=== PATIENT | male | born 1965 | race Caucasian/White ===

== ENCOUNTER 2018-05-18 09:05 | Inpatient (IN) | payer MEDICAID ==
[~2018-05-18] VITALS: Ht 177.8 cm; Wt 98.0 kg
--- NOTE | 2018-05-18 09:39 | NUR ---
patient VEENA VALDES from [facility]. EMS was told that the patient fell out of bed 7 times last night, EMS was called by day shift BRANDON Hidalgo for Altered LOC. This RN has called [facility] and spoken with BRANDON Hidalgo there. She states that the evdence indicates the patient likely was altered during the night, and that was the reason for his falls from bed. The falls were approx 1 foot from his very low bed onto a padded floor. 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 MD Smith updated of this new info, and stated patient should be isolated for TB rule out. This RN has updated spline rolling machine job setter and requested patient be transferred to a TB isolation room. Iso cart and sign placed on room door now by this RN until transfer can be completed.
--- NOTE | 2018-05-18 11:06 | NUR ---
TB precautions discussed with technical staff assistant and observed by technical staff assistant during transport, patient now back from CT scan and placed in room 41 under TB/airborne precautions and negative pressure, Report given to RN Chidi TOWNSEND equipment now present outside room and team assembly line machine operator has stated she will return for blood draw. MD Smith updated of patient's transfer to room 41.
[2018-05-18] MEDS ORDERED: PLEASE ENTER HEIGHT AND WEIGHT MC SCH (12:30)
[2018-05-18] MEDS ORDERED: PIPERACILLIN/TAZO/PMX 4.5GM 100 ML IV ONE (12:30)
[2018-05-18] MEDS ORDERED: VANCOMYCIN PER PHARMACY MC PRN ×2 (12:30→15:00)
[2018-05-18 12:46] LABS: BASOPHILS # (AUTO) 0.03 x10^3/uL (0-0.1); BASOPHILS % (AUTO) 0 % (0-1); EOSINOPHILS # (AUTO) 0.42 x10^3/uL (0-0.4); EOSINOPHILS % (AUTO) 3 % (1-7); LYMPHOCYTES # (AUTO) 2.36 x10^3/uL (1-3.4); LYMPHOCYTES % (AUTO) 16 % (22-44); MD NO; MEAN CORPUSCULAR HEMOGLOBIN 31.7 pg (27.5-34.5); MEAN CORPUSCULAR HGB CONC 33.6 g/dL (33.2-36.2); MEAN CORPUSCULAR VOLUME 94.3 fL (81-97); MEAN PLATELET VOLUME 8.2 fL (7.4-10.4); MONOCYTES # (AUTO) 1.01 x10^3/uL (0.2-0.8); MONOCYTES % (AUTO) 7 % (2-9); NEUTROPHILS # (AUTO) 10.92 x10^3/uL (1.8-6.8); NEUTROPHILS % (AUTO) 74 % (42-75); PLATELET COUNT 274 x10^3/uL (130-400); RED BLOOD COUNT 2.76 x10^6/uL (4.38-5.82); RED CELL DISTRIBUTION WIDTH 14.8 % (9.4-14.8)
[2018-05-18 12:59] LABS: ALANINE AMINOTRANSFERASE 21 U/L (12-78); ALBUMIN 3.3 g/dL (3.4-5.0); ANION GAP 5 mmol/L (5-15); CALCIUM 8.3 mg/dL (8.5-10.1); CHLORIDE 110 mmol/L (98-107); CREATININE 3.69 mg/dL (0.7-1.3)
[2018-05-18 13:02] LABS: INTERNATIONAL NORMALIZED RATIO 0.92 (0.93-1.1); PROTHROMBIN TIME 9.8 Seconds (9.6-11.5)
[2018-05-18 13:03] LABS: ALKALINE PHOSPHATASE 125 U/L (45-117); BILIRUBIN,TOTAL 0.2 mg/dL (0.2-1.0); CREATINE KINASE, TOTAL 285 U/L (39-308); TOTAL PROTEIN 7.5 g/dL (6.4-8.2); TROPONIN I < 0.015 ng/mL (0.000-0.045)
--- NOTE | 2018-05-18 13:10 | NUR ---
pt resting in room. remains altered, stating "quit bugging the shit out of me. Shut up!" pt refusing to answer orientation questions. iv access unable to be established. US attempted x2 by edmd without success. awaiting orders for IR PICC. vss.
[2018-05-18] MEDS ORDERED: VANCOMYCIN 1,800 MG in SODIUM CHLORIDE 0.9% 250 ML IV ONE (13:30)
[2018-05-18] MEDS ORDERED: PHARMACOKINETIC CONSULTATION MC ONE ×2 (13:30→16:30)
--- NOTE | 2018-05-18 13:47 | NUR ---
PT CONTINUES TO REMOVE MONITORING EQUIPMENT. PT REORIENTED AND REMINDED TO LEAVE EQUIPMENT IN PLACE. PICC BEING ATTEMPTED NOW. VSS. WILL CONTINUE TO MONITOR.
--- NOTE | 2018-05-18 14:16 | NUR ---
ANTIBIOTICS STARTED AFTER TWO SETS OF BLOOD CULTURES WERE DRAWN.
[2018-05-18] MEDS ORDERED: CALCIUM GLUCONATE 4.6 MEQ in SODIUM CHLORIDE 0.9% 50 ML IV ONE (14:30)
[2018-05-18] MEDS ORDERED: INSULIN REGULAR 100 UNITS/ML, 3ML VIAL IVPush ONE (14:30)
[2018-05-18] MEDS ORDERED: SODIUM BICARB 8.4%, 50ML SYRINGE IVPush ONE (14:30)
[2018-05-18] MEDS ORDERED: DEXTROSE 50%, 50ML SYRINGE IVPush ONE (14:30)
[2018-05-18] MEDS ORDERED: FUROSEMIDE 40 MG/4 ML IVPush ONE (14:30)
[2018-05-18] MEDS ORDERED: ALBUTEROL 0.5%, 20ML NPPB ONE (14:30)
[2018-05-18 14:42] LABS: CULTURE INDICATED? YES; MICROSCOPIC INDICATED
[2018-05-18] MEDS ORDERED: DEXTROSE 50%, 50ML SYRINGE ONE (14:58)
[2018-05-18] MEDS ORDERED: FUROSEMIDE 40 MG/4 ML ONE (14:58)
[2018-05-18] MEDS ORDERED: INSULIN REGULAR 100 UNITS/ML, 3ML VIAL ONE (14:59)
[2018-05-18] MEDS ORDERED: LABETALOL 5MG/ML, 20ML IVPush PRN (15:00)
[2018-05-18] MEDS ORDERED: DEXTROSE 4 GM TAB.CHEW PO PRN (15:00)
[2018-05-18] MEDS ORDERED: DEXTROSE 50%, 50ML SYRINGE IVPush PRN (15:00)
[2018-05-18] MEDS ORDERED: PHARMACY MAY ADJ FOR RENAL FX MC PRN (15:00)
[2018-05-18] MEDS ORDERED: GLUCAGON 1 MG IM PRN (15:00)
[2018-05-18] MEDS ORDERED: PIPERACILLIN/TAZO 2.25 GM in SODIUM CHLORIDE 0.9% 50 ML IV SCH (15:00)
[2018-05-18] MEDS ORDERED: SODIUM BICARB 8.4%, 50ML SYRINGE ONE (15:01)
[2018-05-18 15:48] LABS: HEMOGLOBIN A1C 4.9 % (4.2-6.3)
[2018-05-18] MEDS: INSULIN LISPRO 100 UNITS/ML, PEN SQ-INSULIN SCH ×2 (16:00→21:18)
[2018-05-18] MEDS ORDERED: PHARMACOKINETIC MONITORING MC PRN (16:30)
[2018-05-18] MEDS: SODIUM CHLORIDE 0.9% 1,000 ML IV SCH (16:33)
[2018-05-18 16:52] LABS: AMPHETAMINE SCREEN, URINE Negative (Negative); BARBITURATE SCREEN, URINE Negative (Negative); BENZODIAZEPINE SCREEN, URINE Negative (Negative); CANNABINOID SCREEN, URINE Negative (Negative); CHLORIDE,URINE RANDOM 38 mmol/L; COCAINE SCREEN, URINE Negative (Negative); METHADONE SCREEN, URINE Negative (Negative); OPIATE SCREEN, URINE Positive (Negative); POTASSIUM,URINE RANDOM 44 mmol/L; SODIUM,URINE RANDOM 56 mmol/L
[2018-05-18 17:03] VITALS: BP 135/83
[2018-05-18 18:11] LABS: ANION GAP 6 mmol/L (5-15); CALCIUM 7.2 mg/dL (8.5-10.1); CHLORIDE 115 mmol/L (98-107)
[2018-05-18 18:21] LABS: CREATINE KINASE, TOTAL 294 U/L (39-308); THYROID STIMULATING HORMONE 0.764 mIU/L (0.358-3.740)
[2018-05-18 20:00] VITALS: BP 131/55
[2018-05-18] MEDS: PIPERACILLIN/TAZO 2.25 GM in DEXTROSE 5% 50 ML IV SCH (21:40)
[2018-05-18] MEDS: SODIUM CHLORIDE FLUSH 10ML SYR IVF SCH (21:41)
[2018-05-19] MEDS: SODIUM CHLORIDE 0.9% 1,000 ML IV SCH ×3 (01:25→20:54)
[2018-05-19 01:35] VITALS: BP 139/61
[2018-05-19] MEDS ORDERED: SODIUM CHLORIDE INHALATION 7%, 4 ML NPPB ONE (04:30)
[2018-05-19] MEDS: PIPERACILLIN/TAZO 2.25 GM in DEXTROSE 5% 50 ML IV SCH (05:38)
[2018-05-19 06:09] LABS: BASOPHILS # (AUTO) 0.03 x10^3/uL (0-0.1); BASOPHILS % (AUTO) 0 % (0-1); EOSINOPHILS # (AUTO) 0.67 x10^3/uL (0-0.4); EOSINOPHILS % (AUTO) 6 % (1-7); LYMPHOCYTES # (AUTO) 2.33 x10^3/uL (1-3.4); LYMPHOCYTES % (AUTO) 20 % (22-44); MD NO; MEAN CORPUSCULAR HGB CONC 33.7 g/dL (33.2-36.2); MEAN CORPUSCULAR VOLUME 94.9 fL (81-97); MEAN PLATELET VOLUME 8.1 fL (7.4-10.4); MONOCYTES # (AUTO) 0.91 x10^3/uL (0.2-0.8); MONOCYTES % (AUTO) 8 % (2-9); NEUTROPHILS % (AUTO) 66 % (42-75); PLATELET COUNT 271 x10^3/uL (130-400); RED BLOOD COUNT 2.58 x10^6/uL (4.38-5.82); RED CELL DISTRIBUTION WIDTH 15.4 % (9.4-14.8)
[2018-05-19 06:17] LABS: ANION GAP 3 mmol/L (5-15); CALCIUM 8.2 mg/dL (8.5-10.1); CHLORIDE 114 mmol/L (98-107)
[2018-05-19 06:21] LABS: ALANINE AMINOTRANSFERASE 17 U/L (12-78); ALKALINE PHOSPHATASE 111 U/L (45-117); BILIRUBIN,TOTAL 0.3 mg/dL (0.2-1.0); CHOL/HDL RATIO 2.7; CHOLESTEROL, TOTAL 112 mg/dL (140-239); CREATININE 3.34 mg/dL (0.7-1.3); HDL CHOL % 38 % (26-37); HDL CHOLESTEROL (DIRECT) 42 mg/dL (40-60); LDL CHOLESTEROL,CALCULATED 43 mg/dL (54-169); TOTAL PROTEIN 6.9 g/dL (6.4-8.2); TRIGLYCERIDES 135 mg/dL (50-200); VANCOMYCIN,RANDOM 20.7 mcg/mL; VLDL CHOLESTEROL 27 mg/dL (0-25)
[2018-05-19] MEDS ORDERED: DEXTROSE 50%, 50ML SYRINGE IVPush ONE (06:30)
[2018-05-19] MEDS ORDERED: INSULIN REGULAR 100 UNITS/ML, 3ML VIAL IV ONE ×2 (06:30→13:30)
[2018-05-19] MEDS ORDERED: CALCIUM GLUCONATE 4.6 MEQ in SODIUM CHLORIDE 0.9% 50 ML IV ONE (07:00)
[2018-05-19] MEDS ORDERED: D5%-0.45% NACL 1,000 ML IV SCH ×2 (07:00→13:34)
[2018-05-19] MEDS: INSULIN LISPRO 100 UNITS/ML, PEN SQ-INSULIN SCH ×4 (07:00→20:25)
[2018-05-19 07:42] VITALS: BP 134/65
[2018-05-19] MEDS: SODIUM CHLORIDE FLUSH 10ML SYR IVF SCH ×2 (08:35→20:54)
[2018-05-19] MEDS ORDERED: FUROSEMIDE 40 MG/4 ML IV ONE (09:30)
[2018-05-19 09:32] LABS: O2 FLOW 2 L/min
--- NOTE | 2018-05-19 09:47 | NUR ---
Recommend: puree/NTLs, 1:1 assist, PO only when pt awake/alert. Swallow precaution sign posted at bedside.
[2018-05-19 12:39] LABS: ANION GAP 6 mmol/L (5-15); CALCIUM 8.4 mg/dL (8.5-10.1); CHLORIDE 112 mmol/L (98-107); CREATININE 3.21 mg/dL (0.7-1.3)
[2018-05-19] MEDS ORDERED: DEXTROSE 50%, 50ML VIAL IVPush ONE (13:30)
[2018-05-19] MEDS ORDERED: SODIUM CHLORIDE 0.9% 1,000 ML IV SCH (13:30)
[2018-05-19 14:04] VITALS: BP 136/69
[2018-05-19 15:12] LABS: ABSOLUTE RETICS # 0.038 x10^6/uL (0.5-1.5); RED BLOOD COUNT 2.64 x10^6/uL (4.38-5.82); RETICULOCYTE COUNT % 1.46 % (0.5-1.5)
[2018-05-19 15:14] LABS: CALCIUM 8.4 mg/dL (8.5-10.1)
[2018-05-19] MEDS: CEFTRIAXONE PMX 1GM/50ML 50 ML IV SCH (17:08)
[2018-05-19] MEDS: HEPARIN 5,000 UNITS/ML, 1ML SQ SCH (17:16)
[2018-05-19 19:11] VITALS: BP 132/76
[2018-05-19 19:13] LABS: MICROSCOPIC AUTO
[2018-05-19 19:14] LABS: CHLORIDE,URINE RANDOM 132 mmol/L; POTASSIUM,URINE RANDOM 31 mmol/L; SODIUM,URINE RANDOM 109 mmol/L
[2018-05-19 19:50] LABS: OSMOLALITY,URINE 442 mOsm/kg (500-850)
[2018-05-19 21:13] LABS: ALBUMIN 3.1 g/dL (3.4-5.0); ANION GAP 5 mmol/L (5-15); CALCIUM 8.3 mg/dL (8.5-10.1); CHLORIDE 113 mmol/L (98-107); CREATININE 2.89 mg/dL (0.7-1.3)
[2018-05-19] MEDS: ACETAMINOPHEN 325 MG TABLET PO PRN (21:43)
[2018-05-20 00:27] VITALS: BP 132/76
[2018-05-20] MEDS: HEPARIN 5,000 UNITS/ML, 1ML SQ SCH ×3 (01:03→16:52)
[2018-05-20] MEDS: SODIUM CHLORIDE 0.9% 1,000 ML IV SCH (03:30)
[2018-05-20 06:19] LABS: BASOPHILS # (AUTO) 0.05 x10^3/uL (0-0.1); BASOPHILS % (AUTO) 0 % (0-1); EOSINOPHILS # (AUTO) 0.51 x10^3/uL (0-0.4); EOSINOPHILS % (AUTO) 4 % (1-7); LYMPHOCYTES # (AUTO) 2.62 x10^3/uL (1-3.4); LYMPHOCYTES % (AUTO) 23 % (22-44); MD NO; MEAN CORPUSCULAR HEMOGLOBIN 32.5 pg (27.5-34.5); MEAN CORPUSCULAR HGB CONC 34.5 g/dL (33.2-36.2); MEAN CORPUSCULAR VOLUME 94.1 fL (81-97); MEAN PLATELET VOLUME 8.1 fL (7.4-10.4); MONOCYTES # (AUTO) 0.95 x10^3/uL (0.2-0.8); MONOCYTES % (AUTO) 8 % (2-9); NEUTROPHILS # (AUTO) 7.42 x10^3/uL (1.8-6.8); NEUTROPHILS % (AUTO) 64 % (42-75); PLATELET COUNT 295 x10^3/uL (130-400); RED BLOOD COUNT 2.48 x10^6/uL (4.38-5.82); RED CELL DISTRIBUTION WIDTH 14.5 % (9.4-14.8)
[2018-05-20 06:28] LABS: CHLORIDE 113 mmol/L (98-107)
[2018-05-20 06:53] LABS: ANION GAP 6 mmol/L (5-15); CALCIUM 8.1 mg/dL (8.5-10.1)
[2018-05-20 06:54] LABS: ALANINE AMINOTRANSFERASE 19 U/L (12-78); ALBUMIN 2.9 g/dL (3.4-5.0); ALKALINE PHOSPHATASE 103 U/L (45-117); BILIRUBIN,TOTAL 0.6 mg/dL (0.2-1.0); CREATININE 2.77 mg/dL (0.7-1.3); TOTAL PROTEIN 6.7 g/dL (6.4-8.2)
[2018-05-20] MEDS: INSULIN LISPRO 100 UNITS/ML, PEN SQ-INSULIN SCH ×4 (07:00→21:04)
[2018-05-20 07:11] VITALS: BP 178/88
[2018-05-20] MEDS ORDERED: SODIUM CHLORIDE 0.45% 1,000 ML IV SCH (08:00)
[2018-05-20] MEDS ORDERED: INSU100I11 SC (08:06)
[2018-05-20] MEDS ORDERED: POLY1DRO EACHEYE (08:06)
[2018-05-20] MEDS ORDERED: ONDA4TAB7 PO (08:06)
[2018-05-20] MEDS ORDERED: OXYC10TA47 PO (08:06)
[2018-05-20] MEDS ORDERED: SENN-88 PO (08:06)
[2018-05-20] MEDS ORDERED: HEPA100D36 SC (08:06)
[2018-05-20] MEDS ORDERED: CHOL10003 PO (08:06)
[2018-05-20] MEDS ORDERED: FLUD0.1T PO (08:06)
[2018-05-20] MEDS ORDERED: ACET325T14 PO (08:06)
[2018-05-20] MEDS ORDERED: VENL37.58 PO (08:06)
[2018-05-20] MEDS ORDERED: PYRI50TA9 PO (08:06)
[2018-05-20] MEDS ORDERED: GABA300C10 PO (08:06)
[2018-05-20] MEDS ORDERED: PREGABALIN 75 MG CAPSULE PO SCH (09:00)
--- NOTE | 2018-05-20 09:53 | NUR ---
Recommend: upgrade to soft texture/thin liquids, straws okay, pacing, small bites/sips. Swallow precaution sign at bedside. Addendum: 05/20/18 at 1318 by [facility] RAO Amended: Links added.
[2018-05-20] MEDS ORDERED: VANCOMYCIN 1,800 MG in SODIUM CHLORIDE 0.9% 250 ML IV SCH ×2 (12:00→15:00)
[2018-05-20] MEDS: SODIUM CHLORIDE FLUSH 10ML SYR IVF SCH ×2 (12:09→21:00)
[2018-05-20] MEDS ORDERED: HYDR-3343 PO (12:41)
[2018-05-20] MEDS: ARTIFICIAL TEARS 15 DROP/ML BOTTLE EACHEYE SCH ×3 (13:00→21:00)
[2018-05-20 13:08] VITALS: BP 169/82
[2018-05-20] MEDS: FLUDROCORTISONE 0.1 MG TABLET PO SCH (13:49)
[2018-05-20] MEDS: VENLAFAXINE XR 37.5MG CAP.ER.24H PO SCH (13:49)
[2018-05-20] MEDS: GABAPENTIN 300 MG CAPSULE PO SCH ×3 (13:50→21:03)
[2018-05-20] MEDS: ACETAMINOPHEN 325 MG TABLET PO PRN (13:50)
[2018-05-20] MEDS: CEFTRIAXONE PMX 1GM/50ML 50 ML IV SCH (16:51)
[2018-05-20 19:20] VITALS: BP 167/87
[2018-05-21] MEDS: HEPARIN 5,000 UNITS/ML, 1ML SQ SCH ×4 (00:04→21:44)
[2018-05-21 00:30] VITALS: BP 193/87
[2018-05-21] MEDS: hydrALAzine 20 MG/ML, 1ML IVPush PRN ×2 (01:04→11:38)
[2018-05-21 05:42] LABS: BASOPHILS # (AUTO) 0.06 x10^3/uL (0-0.1); BASOPHILS % (AUTO) 1 % (0-1); EOSINOPHILS % (AUTO) 5 % (1-7); LYMPHOCYTES # (AUTO) 2.31 x10^3/uL (1-3.4); LYMPHOCYTES % (AUTO) 19 % (22-44); MD NO; MEAN CORPUSCULAR HEMOGLOBIN 32.2 pg (27.5-34.5); MEAN CORPUSCULAR HGB CONC 34.1 g/dL (33.2-36.2); MEAN CORPUSCULAR VOLUME 94.4 fL (81-97); MEAN PLATELET VOLUME 7.7 fL (7.4-10.4); MONOCYTES # (AUTO) 1.11 x10^3/uL (0.2-0.8); MONOCYTES % (AUTO) 9 % (2-9); NEUTROPHILS # (AUTO) 8.02 x10^3/uL (1.8-6.8); NEUTROPHILS % (AUTO) 66 % (42-75); PLATELET COUNT 305 x10^3/uL (130-400); RED BLOOD COUNT 2.53 x10^6/uL (4.38-5.82); RED CELL DISTRIBUTION WIDTH 14.7 % (9.4-14.8)
[2018-05-21 05:59] LABS: CHLORIDE 111 mmol/L (98-107)
[2018-05-21 06:41] LABS: ALANINE AMINOTRANSFERASE 20 U/L (12-78); ALBUMIN 2.9 g/dL (3.4-5.0); ALKALINE PHOSPHATASE 97 U/L (45-117); ANION GAP 5 mmol/L (5-15); BILIRUBIN,TOTAL 0.4 mg/dL (0.2-1.0); CREATININE 2.57 mg/dL (0.7-1.3); TOTAL PROTEIN 6.8 g/dL (6.4-8.2)
[2018-05-21] MEDS: INSULIN LISPRO 100 UNITS/ML, PEN SQ-INSULIN SCH ×4 (07:00→21:35)
[2018-05-21 07:37] VITALS: BP 199/92
[2018-05-21] MEDS: FLUDROCORTISONE 0.1 MG TABLET PO SCH (08:39)
[2018-05-21] MEDS: PYRIDOXINE 50MG TABLET PO SCH (08:40)
[2018-05-21] MEDS: CHOLECALCIFEROL 1,000 UNIT TABLET PO SCH (08:40)
[2018-05-21] MEDS: VENLAFAXINE XR 37.5MG CAP.ER.24H PO SCH (08:40)
[2018-05-21] MEDS: GABAPENTIN 300 MG CAPSULE PO SCH ×3 (08:40→21:32)
[2018-05-21] MEDS: SODIUM CHLORIDE FLUSH 10ML SYR IVF SCH ×2 (08:55→21:32)
[2018-05-21] MEDS: ARTIFICIAL TEARS 15 DROP/ML BOTTLE EACHEYE SCH ×3 (08:56→21:00)
[2018-05-21] MEDS: SODIUM CHLORIDE 0.45% 1,000 ML IV SCH ×2 (09:01→21:32)
[2018-05-21] MEDS: POLYETHYLENE GLYCOL 17 GM PACKET PO PRN (11:29)
[2018-05-21 11:43] VITALS: BP 187/91
[2018-05-21 13:23] VITALS: BP 198/91
[2018-05-21] MEDS: OxyconTIN ER 10 MG TAB.ER PO PRN (15:43)
[2018-05-21 17:20] LABS: HCT (SEDRATE) 23.9 % (39.2-51.8)
[2018-05-21 19:02] VITALS: BP 176/84
[2018-05-21] MEDS: ACETAMINOPHEN 325 MG TABLET PO PRN (21:33)
[2018-05-21] MEDS: CEFDINIR 250 MG/5 ML, ORAL SUSP PO SCH (21:34)
[2018-05-21] MEDS: DOCUSATE 100 MG CAPSULE PO PRN (21:44)
[2018-05-21] MEDS ORDERED: MELATONIN 3 MG TABLET PO PRN (22:30)
[2018-05-22 01:42] VITALS: BP 168/79
[2018-05-22] MEDS ORDERED: ONDANSETRON 2MG/ML, 2ML ONE (05:29)
[2018-05-22] MEDS: OxyconTIN ER 10 MG TAB.ER PO PRN ×2 (05:34→17:27)
[2018-05-22] MEDS: ONDANSETRON 2MG/ML, 2ML IVPush PRN ×2 (05:35→12:16)
[2018-05-22 06:18] LABS: BASOPHILS # (AUTO) 0.04 x10^3/uL (0-0.1); BASOPHILS % (AUTO) 0 % (0-1); EOSINOPHILS # (AUTO) 0.68 x10^3/uL (0-0.4); EOSINOPHILS % (AUTO) 7 % (1-7); LYMPHOCYTES # (AUTO) 2.97 x10^3/uL (1-3.4); LYMPHOCYTES % (AUTO) 28 % (22-44); MD NO; MEAN CORPUSCULAR HEMOGLOBIN 31.4 pg (27.5-34.5); MEAN CORPUSCULAR HGB CONC 33.1 g/dL (33.2-36.2); MEAN CORPUSCULAR VOLUME 94.8 fL (81-97); MEAN PLATELET VOLUME 7.8 fL (7.4-10.4); MONOCYTES # (AUTO) 0.91 x10^3/uL (0.2-0.8); MONOCYTES % (AUTO) 9 % (2-9); NEUTROPHILS # (AUTO) 5.87 x10^3/uL (1.8-6.8); NEUTROPHILS % (AUTO) 56 % (42-75); PLATELET COUNT 310 x10^3/uL (130-400); RED BLOOD COUNT 2.58 x10^6/uL (4.38-5.82); RED CELL DISTRIBUTION WIDTH 14.6 % (9.4-14.8)
[2018-05-22 06:22] LABS: ANION GAP 6 mmol/L (5-15); CALCIUM 7.9 mg/dL (8.5-10.1); CHLORIDE 107 mmol/L (98-107)
[2018-05-22 06:32] VITALS: BP 202/90
[2018-05-22 06:48] LABS: CREATININE 2.15 mg/dL (0.7-1.3)
[2018-05-22] MEDS: INSULIN LISPRO 100 UNITS/ML, PEN SQ-INSULIN SCH ×4 (07:00→20:51)
[2018-05-22] MEDS: SODIUM CHLORIDE 0.45% 1,000 ML IV SCH ×2 (07:32→16:29)
[2018-05-22] MEDS: ARTIFICIAL TEARS 15 DROP/ML BOTTLE EACHEYE SCH ×3 (08:04→20:48)
[2018-05-22] MEDS: SODIUM CHLORIDE FLUSH 10ML SYR IVF SCH ×2 (08:20→20:57)
[2018-05-22] MEDS: CEFDINIR 250 MG/5 ML, ORAL SUSP PO SCH ×2 (08:20→20:57)
[2018-05-22] MEDS: HEPARIN 5,000 UNITS/ML, 1ML SQ SCH ×3 (08:20→21:02)
[2018-05-22] MEDS: GABAPENTIN 300 MG CAPSULE PO SCH ×3 (08:21→20:57)
[2018-05-22] MEDS: CHOLECALCIFEROL 1,000 UNIT TABLET PO SCH (08:21)
[2018-05-22] MEDS: FLUDROCORTISONE 0.1 MG TABLET PO SCH (08:21)
[2018-05-22] MEDS: PYRIDOXINE 50MG TABLET PO SCH (08:21)
[2018-05-22] MEDS: VENLAFAXINE XR 37.5MG CAP.ER.24H PO SCH (08:21)
[2018-05-22] MEDS: hydrALAzine 20 MG/ML, 1ML IVPush PRN (09:22)
[2018-05-22 11:29] VITALS: BP 150/78
[2018-05-22] MEDS ORDERED: CATHFLO-ALTEPLASE 2 MG/2 ML CATHFLUSH ONE (11:30)
[2018-05-22 13:02] VITALS: BP 179/83
[2018-05-22 19:16] VITALS: BP 169/78
[2018-05-22] MEDS: ACETAMINOPHEN 325 MG TABLET PO PRN (20:58)
[2018-05-23 02:33] VITALS: BP 174/79
[2018-05-23] MEDS: ONDANSETRON 2MG/ML, 2ML IVPush PRN ×2 (04:52→14:47)
[2018-05-23] MEDS: SODIUM CHLORIDE 0.45% 1,000 ML IV SCH (05:00)
[2018-05-23 05:31] LABS: BASOPHILS # (AUTO) 0.04 x10^3/uL (0-0.1); BASOPHILS % (AUTO) 0 % (0-1); EOSINOPHILS # (AUTO) 0.53 x10^3/uL (0-0.4); EOSINOPHILS % (AUTO) 5 % (1-7); LYMPHOCYTES # (AUTO) 2.81 x10^3/uL (1-3.4); LYMPHOCYTES % (AUTO) 28 % (22-44); MD NO; MEAN CORPUSCULAR HEMOGLOBIN 32.3 pg (27.5-34.5); MEAN CORPUSCULAR HGB CONC 34.3 g/dL (33.2-36.2); MEAN CORPUSCULAR VOLUME 94.1 fL (81-97); MEAN PLATELET VOLUME 7.4 fL (7.4-10.4); MONOCYTES # (AUTO) 0.82 x10^3/uL (0.2-0.8); MONOCYTES % (AUTO) 8 % (2-9); NEUTROPHILS # (AUTO) 5.87 x10^3/uL (1.8-6.8); NEUTROPHILS % (AUTO) 58 % (42-75); PLATELET COUNT 305 x10^3/uL (130-400); RED BLOOD COUNT 2.47 x10^6/uL (4.38-5.82); RED CELL DISTRIBUTION WIDTH 14.2 % (9.4-14.8)
[2018-05-23 05:40] LABS: ANION GAP 5 mmol/L (5-15); CHLORIDE 108 mmol/L (98-107)
[2018-05-23 05:41] LABS: CREATININE 2.22 mg/dL (0.7-1.3)
[2018-05-23] MEDS: OxyconTIN ER 10 MG TAB.ER PO PRN ×2 (06:34→20:57)
[2018-05-23] MEDS: ACETAMINOPHEN 325 MG TABLET PO PRN (06:35)
[2018-05-23] MEDS: INSULIN LISPRO 100 UNITS/ML, PEN SQ-INSULIN SCH ×4 (07:00→20:50)
[2018-05-23] MEDS: ARTIFICIAL TEARS 15 DROP/ML BOTTLE EACHEYE SCH ×3 (07:34→20:56)
[2018-05-23] MEDS: HEPARIN 5,000 UNITS/ML, 1ML SQ SCH ×2 (07:45→15:59)
[2018-05-23] MEDS: SODIUM CHLORIDE FLUSH 10ML SYR IVF SCH ×2 (07:45→20:56)
[2018-05-23] MEDS: GABAPENTIN 300 MG CAPSULE PO SCH ×3 (07:46→20:57)
[2018-05-23] MEDS: CHOLECALCIFEROL 1,000 UNIT TABLET PO SCH (07:46)
[2018-05-23] MEDS: PYRIDOXINE 50MG TABLET PO SCH (07:46)
[2018-05-23] MEDS: VENLAFAXINE XR 37.5MG CAP.ER.24H PO SCH (07:46)
[2018-05-23] MEDS: FLUDROCORTISONE 0.1 MG TABLET PO SCH (07:46)
[2018-05-23] MEDS: CEFDINIR 250 MG/5 ML, ORAL SUSP PO SCH ×2 (07:50→20:59)
[2018-05-23 08:37] VITALS: BP 167/84
[2018-05-23] MEDS ORDERED: CEFD250S26 PO (09:56)
[2018-05-23] MEDS ORDERED: ARANESP 60 MCG/ML **ESRD SQ SCH (10:30)
[2018-05-23] MEDS: DOCUSATE 100 MG CAPSULE PO PRN (11:47)
[2018-05-23] MEDS: POLYETHYLENE GLYCOL 17 GM PACKET PO PRN (11:47)
[2018-05-23] MEDS ORDERED: MAGNESIUM CITRATE 300ML ORAL SOL ONE (12:04)
[2018-05-23] MEDS: MAGNESIUM CITRATE 300ML ORAL SOL PO PRN (12:07)
[2018-05-23] MEDS ORDERED: METHYLNALTREXONE 12 MG/0.6 ML SQ ONE (12:30)
[2018-05-23 14:26] VITALS: BP 172/78
[2018-05-23] MEDS ORDERED: METHYLNALTREXONE 12 MG/0.6 ML SYR SQ ONE (16:30)
[2018-05-23] MEDS ORDERED: LACTULOSE 20 GM/30 ML UDC PO SCH (16:30)
[2018-05-23 19:13] VITALS: BP 168/72
[2018-05-23] MEDS: LACTULOSE 20 GM/30 ML UDC PO SCH (20:57)
[2018-05-23] MEDS: BISACODYL 10 MG SUPP PR PRN (20:58)
[2018-05-24] VITALS (8 sets, daily range): BP systolic 131–190; BP diastolic 66–93
[2018-05-24] MEDS: HEPARIN 5,000 UNITS/ML, 1ML SQ SCH ×4 (00:30→23:38)
[2018-05-24 05:00] LABS: BASOPHILS # (AUTO) 0.05 x10^3/uL (0-0.1); BASOPHILS % (AUTO) 0 % (0-1); EOSINOPHILS # (AUTO) 0.62 x10^3/uL (0-0.4); EOSINOPHILS % (AUTO) 5 % (1-7); LYMPHOCYTES # (AUTO) 2.98 x10^3/uL (1-3.4); LYMPHOCYTES % (AUTO) 22 % (22-44); MD NO; MEAN CORPUSCULAR HEMOGLOBIN 32.1 pg (27.5-34.5); MEAN CORPUSCULAR HGB CONC 34.2 g/dL (33.2-36.2); MEAN CORPUSCULAR VOLUME 93.9 fL (81-97); MEAN PLATELET VOLUME 7.8 fL (7.4-10.4); MONOCYTES # (AUTO) 0.98 x10^3/uL (0.2-0.8); MONOCYTES % (AUTO) 7 % (2-9); NEUTROPHILS # (AUTO) 8.74 x10^3/uL (1.8-6.8); NEUTROPHILS % (AUTO) 65 % (42-75); PLATELET COUNT 300 x10^3/uL (130-400); RED BLOOD COUNT 2.45 x10^6/uL (4.38-5.82)
[2018-05-24 05:02] LABS: ALANINE AMINOTRANSFERASE 22 U/L (12-78); ALBUMIN 2.9 g/dL (3.4-5.0); ANION GAP 5 mmol/L (5-15); CALCIUM 8.1 mg/dL (8.5-10.1); CHLORIDE 106 mmol/L (98-107); CREATININE 2.14 mg/dL (0.7-1.3)
[2018-05-24 05:05] LABS: ALKALINE PHOSPHATASE 90 U/L (45-117); BILIRUBIN,TOTAL 0.2 mg/dL (0.2-1.0); TOTAL PROTEIN 6.5 g/dL (6.4-8.2)
[2018-05-24] MEDS: INSULIN LISPRO 100 UNITS/ML, PEN SQ-INSULIN SCH ×4 (08:21→20:33)
[2018-05-24] MEDS: CEFDINIR 250 MG/5 ML, ORAL SUSP PO SCH ×2 (08:21→20:39)
[2018-05-24] MEDS: VENLAFAXINE XR 37.5MG CAP.ER.24H PO SCH (08:22)
[2018-05-24] MEDS: CHOLECALCIFEROL 1,000 UNIT TABLET PO SCH (08:22)
[2018-05-24] MEDS: PYRIDOXINE 50MG TABLET PO SCH (08:22)
[2018-05-24] MEDS: FLUDROCORTISONE 0.1 MG TABLET PO SCH (08:22)
[2018-05-24] MEDS: LACTULOSE 20 GM/30 ML UDC PO SCH (08:22)
[2018-05-24] MEDS: GABAPENTIN 300 MG CAPSULE PO SCH ×3 (08:22→20:39)
[2018-05-24] MEDS: SODIUM CHLORIDE FLUSH 10ML SYR IVF SCH ×2 (08:23→20:40)
[2018-05-24] MEDS: ARTIFICIAL TEARS 15 DROP/ML BOTTLE EACHEYE SCH ×3 (09:22→20:38)
[2018-05-24] MEDS: OxyconTIN ER 10 MG TAB.ER PO PRN ×2 (11:15→23:39)
[2018-05-24] MEDS: ONDANSETRON 2MG/ML, 2ML IVPush PRN (11:22)
[2018-05-24] MEDS ORDERED: LABETALOL 20 MG/4 ML IVPush PRN (14:00)
[2018-05-24] MEDS: POLYETHYLENE GLYCOL 17 GM PACKET PO PRN (14:46)
[2018-05-24] MEDS: MAGNESIUM CITRATE 300ML ORAL SOL PO PRN (16:34)
[2018-05-24] MEDS: AMLODIPINE 5 MG TABLET PO SCH (20:58)
[2018-05-24] MEDS: hydrALAzine 20 MG/ML, 1ML IVPush PRN (23:53)
[2018-05-25 01:29] VITALS: BP 148/72
[2018-05-25 03:44] LABS: MEAN CORPUSCULAR HEMOGLOBIN 32.4 pg (27.5-34.5); MEAN CORPUSCULAR HGB CONC 34.5 g/dL (33.2-36.2); MEAN CORPUSCULAR VOLUME 93.8 fL (81-97); MEAN PLATELET VOLUME 7.4 fL (7.4-10.4); PLATELET COUNT 309 x10^3/uL (130-400); RED BLOOD COUNT 2.27 x10^6/uL (4.38-5.82); RED CELL DISTRIBUTION WIDTH 14.9 % (9.4-14.8)
[2018-05-25 03:47] LABS: ALBUMIN 2.7 g/dL (3.4-5.0); ANION GAP 4 mmol/L (5-15); CALCIUM 8.1 mg/dL (8.5-10.1); CHLORIDE 105 mmol/L (98-107); CREATININE 2.21 mg/dL (0.7-1.3)
[2018-05-25 04:09] LABS: BASOPHILS # (AUTO) 0.04 x10^3/uL (0-0.1); BASOPHILS % (AUTO) 0 % (0-1); EOSINOPHILS # (AUTO) 0.43 x10^3/uL (0-0.4); EOSINOPHILS % (AUTO) 4 % (1-7); LYMPHOCYTES # (AUTO) 2.52 x10^3/uL (1-3.4); LYMPHOCYTES % (AUTO) 23 % (22-44); MD SCAN; MONOCYTES # (AUTO) 0.98 x10^3/uL (0.2-0.8); MONOCYTES % (AUTO) 9 % (2-9); NEUTROPHILS # (AUTO) 7.19 x10^3/uL (1.8-6.8); NEUTROPHILS % (AUTO) 64 % (42-75)
[2018-05-25] MEDS: ONDANSETRON 2MG/ML, 2ML IVPush PRN (06:41)
[2018-05-25 07:49] VITALS: BP 155/79
[2018-05-25] MEDS: INSULIN LISPRO 100 UNITS/ML, PEN SQ-INSULIN SCH ×4 (08:13→21:24)
[2018-05-25] MEDS: ARTIFICIAL TEARS 15 DROP/ML BOTTLE EACHEYE SCH ×3 (09:58→21:24)
[2018-05-25] MEDS: VENLAFAXINE XR 37.5MG CAP.ER.24H PO SCH (09:58)
[2018-05-25] MEDS: FLUDROCORTISONE 0.1 MG TABLET PO SCH (09:58)
[2018-05-25] MEDS: CHOLECALCIFEROL 1,000 UNIT TABLET PO SCH (09:58)
[2018-05-25] MEDS: LACTULOSE 20 GM/30 ML UDC PO SCH (09:58)
[2018-05-25] MEDS: PYRIDOXINE 50MG TABLET PO SCH (09:58)
[2018-05-25] MEDS: AMLODIPINE 5 MG TABLET PO SCH ×2 (09:58→21:24)
[2018-05-25] MEDS: GABAPENTIN 300 MG CAPSULE PO SCH ×3 (09:58→21:24)
[2018-05-25] MEDS: SODIUM CHLORIDE FLUSH 10ML SYR IVF SCH ×2 (09:59→21:00)
[2018-05-25] MEDS: CEFDINIR 250 MG/5 ML, ORAL SUSP PO SCH ×2 (10:36→21:24)
[2018-05-25] MEDS: HEPARIN 5,000 UNITS/ML, 1ML SQ SCH ×2 (10:37→18:49)
[2018-05-25 12:37] VITALS: BP 175/92
[2018-05-25] MEDS: OxyconTIN ER 10 MG TAB.ER PO PRN (13:08)
[2018-05-25 13:28] VITALS: BP 177/93
[2018-05-25] MEDS: BISACODYL 10 MG SUPP PR PRN (14:51)
[2018-05-25] MEDS ORDERED: PINK LADY ENEMA 490 ML BOTTLE PR ONE (16:30)
[2018-05-25 16:44] VITALS: BP 155/80
[2018-05-25 21:11] VITALS: BP 156/80
[2018-05-26 02:32] VITALS: BP 141/78
[2018-05-26] MEDS: OxyconTIN ER 10 MG TAB.ER PO PRN (02:56)
[2018-05-26] MEDS: HEPARIN 5,000 UNITS/ML, 1ML SQ SCH ×3 (02:56→10:55)
[2018-05-26] MEDS: ONDANSETRON 2MG/ML, 2ML IVPush PRN (02:56)
[2018-05-26] MEDS: INSULIN LISPRO 100 UNITS/ML, PEN SQ-INSULIN SCH ×3 (07:00→16:00)
[2018-05-26 09:20] VITALS: BP 133/70
[2018-05-26] MEDS: CEFDINIR 250 MG/5 ML, ORAL SUSP PO SCH (10:42)
[2018-05-26] MEDS: LACTULOSE 20 GM/30 ML UDC PO SCH (10:42)
[2018-05-26] MEDS: ARTIFICIAL TEARS 15 DROP/ML BOTTLE EACHEYE SCH ×2 (10:42→16:00)
[2018-05-26] MEDS: AMLODIPINE 5 MG TABLET PO SCH (10:43)
[2018-05-26] MEDS: CHOLECALCIFEROL 1,000 UNIT TABLET PO SCH (10:43)
[2018-05-26] MEDS: FLUDROCORTISONE 0.1 MG TABLET PO SCH (10:43)
[2018-05-26] MEDS: GABAPENTIN 300 MG CAPSULE PO SCH ×2 (10:43→16:00)
[2018-05-26] MEDS: PYRIDOXINE 50MG TABLET PO SCH (10:49)
[2018-05-26] MEDS: SODIUM CHLORIDE FLUSH 10ML SYR IVF SCH (10:50)
[2018-05-26] MEDS: VENLAFAXINE XR 37.5MG CAP.ER.24H PO SCH (10:50)
[2018-05-26 11:48] LABS: MEAN CORPUSCULAR HEMOGLOBIN 31.9 pg (27.5-34.5); MEAN CORPUSCULAR HGB CONC 33.4 g/dL (33.2-36.2); MEAN CORPUSCULAR VOLUME 95.3 fL (81-97); MEAN PLATELET VOLUME 7.8 fL (7.4-10.4); PLATELET COUNT 313 x10^3/uL (130-400); RED BLOOD COUNT 2.36 x10^6/uL (4.38-5.82); RED CELL DISTRIBUTION WIDTH 14.4 % (9.4-14.8)
[2018-05-26 12:04] LABS: ANION GAP 4 mmol/L (5-15); CHLORIDE 104 mmol/L (98-107); CREATININE 2.33 mg/dL (0.7-1.3)
[2018-05-26 12:11] LABS: BASOPHILS # (AUTO) 0.04 x10^3/uL (0-0.1); BASOPHILS % (AUTO) 0 % (0-1); EOSINOPHILS # (AUTO) 0.47 x10^3/uL (0-0.4); EOSINOPHILS % (AUTO) 4 % (1-7); LYMPHOCYTES % (AUTO) 16 % (22-44); MD SCAN; MONOCYTES # (AUTO) 0.92 x10^3/uL (0.2-0.8); MONOCYTES % (AUTO) 7 % (2-9); NEUTROPHILS # (AUTO) 9.52 x10^3/uL (1.8-6.8); NEUTROPHILS % (AUTO) 73 % (42-75)
[2018-05-26] MEDS ORDERED: AMLO-150 PO (12:18)
[2018-05-26 13:45] VITALS: BP 168/72
[2018-05-26] MEDS ORDERED: ONDANSETRON ODT 4 MG ONE (15:53)
[2018-05-26] MEDS ORDERED: ONDANSETRON ODT 4 MG PO ONE (16:00)
== END 2018-05-26 18:48 | DRG 682 ==
LOC: ED 10:11 → EDIP 14:30 → 4WST 15:58 → UNDODISIN 05-26 16:22
PROVIDERS: ADMIT Hospitalist; ATTEND Hospitalist
PROC: 02HV33Z Insertion of Infusion Device into Superior Vena Cava, Percutaneous Approach (ICD-10-PCS; principal; 2018-05-18)
PROC: B548ZZA Ultrasonography of Superior Vena Cava, Guidance (ICD-10-PCS; 2018-05-18)
DX: N17.9 Acute kidney failure, unspecified (principal); J18.9 Pneumonia, unspecified organism; G93.41 Metabolic encephalopathy; E46 Unspecified protein-calorie malnutrition; I31.3 Pericardial effusion (noninflammatory); J44.0 Chronic obstructive pulmonary disease with (acute) lower respiratory infection; J90 Pleural effusion, not elsewhere classified; J96.10 Chronic respiratory failure, unspecified whether with hypoxia or hypercapnia; L03.116 Cellulitis of left lower limb; N39.0 Urinary tract infection, site not specified; F05 Delirium due to known physiological condition; E11.22 Type 2 diabetes mellitus with diabetic chronic kidney disease; E11.51 Type 2 diabetes mellitus with diabetic peripheral angiopathy without gangrene; E11.649 Type 2 diabetes mellitus with hypoglycemia without coma; E83.51 Hypocalcemia; E87.5 Hyperkalemia; H91.90 Unspecified hearing loss, unspecified ear; K21.9 Gastro-esophageal reflux disease without esophagitis; N18.9 Chronic kidney disease, unspecified; Z74.01 Bed confinement status; Z88.8 Allergy status to other drugs, medicaments and biological substances; I11.9 Hypertensive heart disease without heart failure; M47.812 Spondylosis without myelopathy or radiculopathy, cervical region; R29.6 Repeated falls; E11.40 Type 2 diabetes mellitus with diabetic neuropathy, unspecified; I65.23 Occlusion and stenosis of bilateral carotid arteries; R76.11 Nonspecific reaction to tuberculin skin test without active tuberculosis; Z86.73 Personal history of transient ischemic attack (TIA), and cerebral infarction without residual deficits; Z89.511 Acquired absence of right leg below knee; D63.8 Anemia in other chronic diseases classified elsewhere; F32.9 Major depressive disorder, single episode, unspecified; G89.29 Other chronic pain
CPT/HCPCS: 36415; 36569; 36600; 70450; 71045; 71250; 72125; 72131; 74018; 76770; 76937; 77001; 80048; 80053; 80061; 80202; 80307; 81001; 82040; 82140; 82306; 82310; 82330; 82436; 82550; 82570; 82728; 82803; 82962; 83036; 83540; 83550; 83605; 83690; 83735; 83935; 83970; 84100; 84133; 84145; 84300; 84443; 84484; 84550; 85025; 85045; 85610; 85651; 85730; 87040; 87086; 87205; 93005; 93306; 93880; 95819; 96374; 96375; G0378; J0610; J0696; J0882; J1644; J1815; J1940; J2405; J2543; J2997; J3370; Q0162; 92523-GN; C1751; J0360; J7030; J7050